=== PATIENT | female | born 1990 | race Caucasian/White ===

== ENCOUNTER 2019-01-09 19:42 | Emergency (ER) | payer BC ==
--- NOTE | 2019-01-09 20:33 | ED ---
General Adult HPI - General Chief complaint: Skin/Abscess/Foreign Body Stated complaint: infection at tube site Time Seen by Provider: 01/09/19 20:24 Source: patient Mode of arrival: ambulatory Limitations: no limitations - History of Present Illness Initial comments: Patient is a 28-year-old female presenting to the emergency department with a chief complaint of drainage after DONALD drain removal. Patient reports an appendectomy in april followed by multiple Infections. Patient reports in November she had a DOANLD drain placed for abscess drainage. Patient reports she has been on IV antibiotics and recently finished oral antibiotics. Patient reports 10 days ago she had the DONALD tube removed without any complications and the site was healing well. Patient reports she woke up this morning and noticed swelling and surrounding erythema along with yellow/white discharge. Patient reports chills but no fevers. Patient reports pain is a 5 and throbbing and it appears to be exacerbated with ambulation. - Related Data Home Medications Medication Instructions Recorded Confirmed Acetaminophen Tab [Tylenol Tab] 650 mg PO Q6H PRN 01/09/19 01/09/19 Budesonide [Budesonide EC] 9 mg PO DAILY 01/09/19 01/09/19 Cholecalciferol (Vitamin D3) 2,000 unit PO DAILY 01/09/19 01/09/19 [Vitamin D3] Ferrous Sulfate [Iron (65 MG 325 mg PO MOWEFR 01/09/19 01/09/19 Elemental)] Multivitamins, Thera [Multivitamin 1 tab PO DAILY 01/09/19 01/09/19 (formulary)] Prochlorperazine [Compazine] 5 mg PO Q6H PRN 01/09/19 01/09/19 Allergies Allergy/AdvReac Type Severity Reaction Status Date / Time cephalexin [From Keflex] Allergy Rash/Hives Verified 01/09/19 23:09 Review of Systems ROS Statement: Those systems with pertinent positive or pertinent negative responses have been documented in the HPI. ROS Other: All systems not noted in ROS Statement are negative. Past Medical History Past Medical History: No Reported History History of Any Multi-Drug Resistant Organisms: None Reported Past Surgical History: Adenoidectomy Past Psychological History: No Psychological Hx Reported Smoking Status: Never smoker Past Alcohol Use History: Occasional Past Drug Use History: None Reported General Exam Limitations: no limitations General appearance: alert, in no apparent distress Head exam: Present: atraumatic, normocephalic, normal inspection Eye exam: Present: normal appearance Pupils: Present: normal accommodation ENT exam: Present: normal exam, normal oropharynx, mucous membranes moist, TM's normal bilaterally, normal external ear exam Neck exam: Present: normal inspection, full ROM Respiratory exam: Present: normal lung sounds bilaterally Cardiovascular Exam: Present: normal rhythm, tachycardia, normal heart sounds GI/Abdominal exam: Present: soft, tenderness (Right lower quadrant tenderness at the site of J-P tube placement), normal bowel sounds, other (Draining open wound where the DONALD tube was removed from. Yellow/white drainage. Slight surrounding erythema and mild swelling. 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 Absent: distended, guarding, rebound, rigid, diminished bowel sounds, hyperactive bowel sounds, bruit, pulsatile mass, hernia Extremities exam: Present: normal inspection, full ROM Back exam: Present: normal inspection, full ROM. Absent: tenderness Neurological exam: Present: alert, oriented X3 Psychiatric exam: Present: normal affect, normal mood Skin exam: Present: warm, dry, intact, normal color Course Vital Signs 01/09/19 19:50 Temperature 97.7 F Pulse Rate 105 H Respiratory 20 Rate Blood Pressure 119/82 O2 Sat by Pulse 100 Oximetry Medical Decision Making - Medical Decision Making Patient is a 28-year-old female presenting to the emergency room with a chief complaint of a drainage from drain site. On physical examination there appears to be discharge that is yellow/white in color on the site of the DONALD drain. There is some swelling in the region with minimal erythema. Tenderness is tender with palpation. No abdominal guarding. CBC is indicative of mild leukocytosis and mild anemia. Blood cultures and lactic pending. Patient is declining analgesia. CT obtained is indicative of the large iliopsoas abscess along with an abscess in the pelvic region as well. Patient given fluids, vancomycin and Zosyn. Patient will be transferred to [facility] where the patient had the DONALD drain placed initially. Vitals are stable except for mild tachycardia. I spoke with Dr. escalona from the [facility] who will accept the patient. Patient will be transferred via ambulance. Case discussed with Dr. Funez. - Lab Data Result diagrams: 01/09/19 21:00 01/09/19 21:00 Lab Results 01/09/19 01/09/19 Range/Units 21:00 21:00 WBC 11.1 H (3.8-10.6) k/uL RBC 4.51 (3.80-5.40) m/uL Hgb 11.0 L (11.4-16.0) gm/dL Hct 34.4 (34.0-46.0) % MCV 76.3 L (80.0-100.0) fL MCH 24.4 L (25.0-35.0) pg MCHC 32.0 (31.0-37.0) g/dL RDW 18.2 H (11.5-15.5) % Plt Count 521 H (150-450) k/uL Anisocytosis Slight Microcytosis Moderate Sodium 136 L (137-145) mmol/L Potassium 4.4 (3.5-5.1) mmol/L Chloride 98 (98-107) mmol/L Carbon Dioxide 26 (22-30) mmol/L Anion Gap 12 mmol/L BUN 12 (7-17) mg/dL Creatinine 0.64 (0.52-1.04) mg/dL Est GFR (CKD-EPI)AfAm >90 (>60 ml/min/1.73 sqM) Est GFR (CKD-EPI)NonAf >90 (>60 ml/min/1.73 sqM) Glucose 129 H (74-99) mg/dL Calcium 9.2 (8.4-10.2) mg/dL Total Bilirubin 0.3 (0.2-1.3) mg/dL AST 21 (14-36) U/L ALT 16 (9-52) U/L Alkaline Phosphatase 120 (38-126) U/L Total Protein 7.1 (6.3-8.2) g/dL Albumin 3.4 L (3.5-5.0) g/dL Disposition Clinical Impression: Iliopsoas abscess on right Disposition: OTHER INSTITUTION NOT DEFINED Condition: Stable Instructions (If sedation given, give patient instructions): Abscess (ED) Additional Instructions: Patient will be transferred. Is patient prescribed a controlled substance at d/c from ED?: No Referrals: None,Stated [Primary Care Provider] - 1-2 days Time of Disposition: 00:39 - Out of Hospital Transfer - Req. Specs Out of Hospital Transfer - Requested Specifics: Other Emergency Center ([facility])
[2019-01-09 21:23] LABS: Anisocytosis Slight; HCT 34.4 % (34.0-46.0); MCH 24.4 pg (25.0-35.0); MCV 76.3 fL (80.0-100.0); Mean Platelet Volume 6.4; Microcytosis Moderate; Platelet Count 521 k/uL (150-450); RBC 4.51 m/uL (3.80-5.40); RDW 18.2 % (11.5-15.5); WBC 11.1 k/uL (3.8-10.6)
[2019-01-09 21:29] LABS: ALT 16 U/L (9-52); AST 21 U/L (14-36); African American GFR (CKD) >90 (>60 ml/min/1.73 sqM); Albumin 3.4 g/dL (3.5-5.0); Alkaline Phosphatase 120 U/L (38-126); Anion Gap 12 mmol/L; Blood Urea Nitrogen 12 mg/dL (7-17); Calcium 9.2 mg/dL (8.4-10.2); Carbon Dioxide 26 mmol/L (22-30); Chloride 98 mmol/L (98-107); Glucose 129 mg/dL (74-99); Non-African American GFR(CKD) >90 (>60 ml/min/1.73 sqM); Potassium 4.4 mmol/L (3.5-5.1); Sodium 136 mmol/L (137-145); Total Bilirubin 0.3 mg/dL (0.2-1.3); Total Protein 7.1 g/dL (6.3-8.2)
--- NOTE | 2019-01-09 23:20 | CT ---
EXAMINATION TYPE: CT abdomen pelvis w con DATE OF EXAM: 01/09/2019 COMPARISON: None HISTORY: RLQ abcess CT DLP: 705.5 mGycm Automated exposure control for dose reduction was used. TECHNIQUE: Helical acquisition of images was performed from the lung bases through the pelvis. CONTRAST: Performed without Oral Contrast and with IV Contrast, patient injected with 100 mL of Isovue 300. FINDINGS: Lung bases are clear. There is no pleural effusion. Heart size is normal. There is no pericardial eff usion. Liver spleen gallbladder pancreas appear normal. Bile ducts are not dilated. There is no adrenal mass. Kidneys show satisfactory contrast opacification. There is mild right-sided hydronephrosis. The right ureter is mildly ectatic. Bladder distends smoothly. There is no inguinal hernia. There is some free fluid in the pelvis. There is fat stranding and wall thickening involving loops of bowel in the right lower quadrant. The delay ed images show normal renal contrast excretion. I see no bony destructive process. Lumbar spine is in tact. Bony pelvis is intact. There is low attenuation and fluid along the iliopsoas muscle there is complex and septated. On the a xial images this measures 7 x 3 cm. There is some linear increased density extending to the skin surf annita in the right lower quadrant anteriorly consistent with surgical site. This should be correlated w ith the surgical history. Appendix is not seen. A thickened appendix is certainly possible in this ex tensive inflammatory changes in the right lower quadrant. IMPRESSION: THERE IS LARGE RIGHT-SIDED ILIOPSOAS ABSCESS WITH A FEW AIR BUBBLES AND COMPLEX SEPTATED FLUID. THERE IS FAT STRANDING IN THE ADJACENT BOWEL. THERE IS SOME FREE FLUID IN THE PELVIS. THIS IS CONSISTENT W ITH PELVIC ABSCESS. THERE IS MILD RIGHT-SIDED HYDRONEPHROSIS PROBABLY SECONDARY TO INFLAMMATORY MCNAIR ES ADJACENT TO THE RIGHT URETER. NO URETERAL STONE SEEN. There is wall thickening of distal loops of ileum and probably also the cecum consistent with inflammatory process. Is not clear if the appendix is present or not.
[2019-01-10] MEDS ORDERED: VANCOMYCIN 1,000 MG in SODIUM CHLORIDE 0.9% 250 ML IVPB STA (00:21)
[2019-01-10] MEDS ORDERED: PIPERACILLIN-TAZOBACTAM 3.375 GM in SODIUM CHLORIDE 0.9% 100 ML IVPB STA (00:22)
[2019-01-10 02:33] VITALS: BP 129/74; PULSE 100; RESP 18; TEMP 98.6
== END 2019-01-10 01:24 | disposition other institution (70) ==
LOC: EC 19:42
DX: K68.12 Psoas muscle abscess (principal); D72.829 Elevated white blood cell count, unspecified; D64.9 Anemia, unspecified; R00.0 Tachycardia, unspecified; Z88.1 Allergy status to other antibiotic agents
CPT/HCPCS: 36415 ×2; 80053; 83605; 85027; 87040; 87070; 87205; 87077; 87186; 74177; 99285; 96365; J2543; J3370; Q9967

== ENCOUNTER 2019-02-13 19:47 | Emergency (ER) | payer BC ==
[2019-02-13 20:04] VITALS: RESP 18; TEMP 97.8
[2019-02-13] MEDS ORDERED: SODIUM CHLORIDE 0.9% 1,000 ML IV STA (21:05)
[2019-02-13] MEDS ORDERED: MORPHINE SULFATE 4 MG/ML SYRINGE IV STA (21:05)
--- NOTE | 2019-02-13 21:12 | ED ---
Abdominal Pain HPI - General Chief Complaint: Abdominal Pain Stated Complaint: Abd Pain Time Seen by Provider: 02/13/19 20:43 Source: patient, RN notes reviewed, old records reviewed Mode of arrival: ambulatory Limitations: no limitations - History of Present Illness Initial Comments: this is a 28-year-old female here for evaluation rediagnosed recent diagnosis of Crohn's with abscess abdominal abscess and drain placed. Patient is having adequate drainage with no severe severe pain. All treatment is been done at the [facility] at this point. Otherwise patient has no significant fevers. No change in bowel habits no nausea vomiting. MD Complaint: abdominal pain, other (patient had recentsaid abdominal surgery, drain placed for abscess drainage) -: days(s) Location: suprapubic Radiation: suprapubic, bilateral flank Migration to: suprapubic, bilateral flank Severity: severe Severity scale (1-10): 8 Quality: stabbing, aching Consistency: constant Improves With: nothing Worsens With: nothing Associated Symptoms: nausea - Related Data Home Medications Medication Instructions Recorded Confirmed Cholecalciferol (Vitamin D3) 2,000 unit PO DAILY 01/09/19 02/13/19 [Vitamin D3] Ferrous Sulfate [Iron (65 MG 325 mg PO MOWEFR 01/09/19 02/13/19 Elemental)] Multivitamins, Thera [Multivitamin 1 tab PO DAILY 01/09/19 02/13/19 (formulary)] Ertapenem [INVanz] 1 gm IVPB Q24H 02/13/19 02/13/19 Allergies Allergy/AdvReac Type Severity Reaction Status Date / Time cephalexin [From Keflex] Allergy Rash/Hives Verified 02/13/19 23:21 Review of Systems ROS Statement: Those systems with pertinent positive or pertinent negative responses have been documented in the HPI. ROS Other: All systems not noted in ROS Statement are negative. Past Medical History Past Medical History: No Reported History Additional Past Medical History / Comment(s): crohns, abscess to intestine History of Any Multi-Drug Resistant Organisms: C-DIFF Date of last positivie culture/infection: 2019 MDRO Source:: stool Past Surgical History: Adenoidectomy, Appendectomy Past Psychological History: No Psychological Hx Reported Smoking Status: Never smoker Past Alcohol Use History: None Reported Past Drug Use History: None Reported General Exam Limitations: no limitations General appearance: alert, in no apparent distress, anxious Head exam: Present: atraumatic, normocephalic, normal inspection Eye exam: Present: normal appearance, PERRL, EOMI. Absent: scleral icterus, conjunctival injection, periorbital swelling ENT exam: Present: normal exam, mucous membranes moist Neck exam: Present: normal inspection. Absent: tenderness, meningismus, lymphadenopathy Respiratory exam: Present: normal lung sounds bilaterally. Absent: respiratory distress, wheezes, rales, rhonchi, stridor Cardiovascular Exam: Present: normal rhythm, tachycardia, normal heart sounds. Absent: systolic murmur, diastolic murmur, rubs, gallop, clicks GI/Abdominal exam: Present: distended, tenderness, guarding, normal bowel sounds. Absent: rebound, rigid Extremities exam: Present: normal inspection, full ROM, normal capillary refill. Absent: tenderness, pedal edema, joint swelling, calf tenderness Back exam: Present: normal inspection Neurological exam: Present: alert, oriented X3, CN II-XII intact Psychiatric exam: Present: normal affect, normal mood Skin exam: Present: warm, dry, intact, normal color. Absent: rash Course Vital Signs 02/13/19 02/13/19 20:02 23:36 Temperature 97.8 F Pulse Rate 112 H 97 Respiratory 18 18 Rate Blood Pressure 119/82 126/79 O2 Sat by Pulse 98 98 Oximetry - Reevaluation(s) Reevaluation #1: 02/13/19 23:31 medical records reviewed Reevaluation #2: 02/13/19 23:31 since pain is currently controlled Reevaluation #3: 02/13/19 23:32 spoke w family regarding treatment course and plan, questions are answered Reevaluation #4: 02/13/19 23:39 spoke patient states she has appointment with her surgeon 27 she would like to continue outpatient management at this time pain control she has antibiotics which she has she will call surgeon the morning without results - Consultations Consultation #1: spoke w Dr Stahl states the patient should be followed up under her primary care [facility] Medical Decision Making - Medical Decision Making 28 female to be discharged home does have recurrent new abscess in abdomen, patient is afebrile and well-appearing not peritoneal. Patient will be discharged home to follow up with surgeon this week - Lab Data Result diagrams: 02/13/19 20:58 02/13/19 20:58 Lab Results 02/13/19 02/13/19 02/13/19 Range/Units 20:58 20:58 20:58 WBC 10.1 (3.8-10.6) k/uL RBC 4.22 (3.80-5.40) m/uL Hgb 10.9 L (11.4-16.0) gm/dL Hct 33.1 L (34.0-46.0) % MCV 78.4 L (80.0-100.0) fL MCH 25.7 (25.0-35.0) pg MCHC 32.8 (31.0-37.0) g/dL RDW 15.7 H (11.5-15.5) % Plt Count 478 H (150-450) k/uL Neutrophils % 76 % Lymphocytes % 13 % Monocytes % 6 % Eosinophils % 3 % Basophils % 1 % Neutrophils # 7.7 (1.3-7.7) k/uL Lymphocytes # 1.4 (1.0-4.8) k/uL Monocytes # 0.6 (0-1.0) k/uL Eosinophils # 0.3 (0-0.7) k/uL Basophils # 0.1 (0-0.2) k/uL Microcytosis Slight Sodium 135 L (137-145) mmol/L Potassium 4.1 (3.5-5.1) mmol/L Chloride 100 (98-107) mmol/L Carbon Dioxide 26 (22-30) mmol/L Anion Gap 9 mmol/L BUN 12 (7-17) mg/dL Creatinine 0.71 (0.52-1.04) mg/dL Est GFR (CKD-EPI)AfAm >90 (>60 ml/min/1.73 sqM) Est GFR (CKD-EPI)NonAf >90 (>60 ml/min/1.73 sqM) Glucose 93 (74-99) mg/dL Plasma Lactic Acid Moris 0.6 L (0.7-2.0) mmol/L Calcium 9.3 (8.4-10.2) mg/dL Total Bilirubin 0.6 (0.2-1.3) mg/dL AST 19 (14-36) U/L ALT 10 (4-34) U/L Alkaline Phosphatase 109 (38-126) U/L Creatine Kinase <20 L (30-135) U/L Total Protein 6.7 (6.3-8.2) g/dL Albumin 3.4 L (3.5-5.0) g/dL Amylase <30 L (30-110) U/L Lipase 32 (23-300) U/L Urine Color Urine Appearance (Clear) Urine pH (5.0-8.0) Ur Specific [place] (1.001-1.035) Urine Protein (Negative) Urine Glucose (UA) (Negative) Urine Ketones (Negative) Urine Blood (Negative) Urine Nitrite (Negative) Urine Bilirubin (Negative) Urine Urobilinogen (<2.0) mg/dL Ur Leukocyte Esterase (Negative) Urine RBC (0-5) /hpf Urine WBC (0-5) /hpf Urine WBC Clumps (None) /hpf Ur Squamous Epith Cells (0-4) /hpf Calcium Oxalate Crystal (None) /hpf Urine Mucus (None) /hpf Urine HCG, Qual (Not Detectd) 02/13/19 02/13/19 Range/Units 21:15 21:15 WBC (3.8-10.6) k/uL RBC (3.80-5.40) m/uL Hgb (11.4-16.0) gm/dL Hct (34.0-46.0) % MCV (80.0-100.0) fL MCH (25.0-35.0) pg MCHC (31.0-37.0) g/dL RDW (11.5-15.5) % Plt Count (150-450) k/uL Neutrophils % % Lymphocytes % % Monocytes % % Eosinophils % % Basophils % % Neutrophils # (1.3-7.7) k/uL Lymphocytes # (1.0-4.8) k/uL Monocytes # (0-1.0) k/uL Eosinophils # (0-0.7) k/uL Basophils # (0-0.2) k/uL Microcytosis Sodium (137-145) mmol/L Potassium (3.5-5.1) mmol/L Chloride (98-107) mmol/L Carbon Dioxide (22-30) mmol/L Anion Gap mmol/L BUN (7-17) mg/dL Creatinine (0.52-1.04) mg/dL Est GFR (CKD-EPI)AfAm (>60 ml/min/1.73 sqM) Est GFR (CKD-EPI)NonAf (>60 ml/min/1.73 sqM) Glucose (74-99) mg/dL Plasma Lactic Acid Moris (0.7-2.0) mmol/L Calcium (8.4-10.2) mg/dL Total Bilirubin (0.2-1.3) mg/dL AST (14-36) U/L ALT (4-34) U/L Alkaline Phosphatase (38-126) U/L Creatine Kinase (30-135) U/L Total Protein (6.3-8.2) g/dL Albumin (3.5-5.0) g/dL Amylase (30-110) U/L Lipase (23-300) U/L Urine Color Yellow Urine Appearance Turbid H (Clear) Urine pH 5.5 (5.0-8.0) Ur Specific [place] 1.021 (1.001-1.035) Urine Protein 2+ H (Negative) Urine Glucose (UA) Negative (Negative) Urine Ketones Negative (Negative) Urine Blood Large H (Negative) Urine Nitrite Negative (Negative) Urine Bilirubin Negative (Negative) Urine Urobilinogen 2.0 (<2.0) mg/dL Ur Leukocyte Esterase Large H (Negative) Urine RBC >182 H (0-5) /hpf Urine WBC >182 H (0-5) /hpf Urine WBC Clumps Many H (None) /hpf Ur Squamous Epith Cells 5 H (0-4) /hpf Calcium Oxalate Crystal Many H (None) /hpf Urine Mucus Many H (None) /hpf Urine HCG, Qual Not Detected (Not Detectd) - Radiology Data Radiology results: report reviewed (CT abdomen and pelvis is positive for new abscess and improvement of old abscess), image reviewed Disposition Clinical Impression: Abdominal abscess, Abdominal pain Disposition: HOME SELF-CARE Condition: Fair Instructions (If sedation given, give patient instructions): Abscess (ED) Is patient prescribed a controlled substance at d/c from ED?: No Referrals: None,Stated [Primary Care Provider] - 1-2 days
[2019-02-13 21:27] LABS: Basophils # (A) 0.1 k/uL (0-0.2); Basophils % (A) 1 %; Eosinophils # (A) 0.3 k/uL (0-0.7); Eosinophils % (A) 3 %; HCT 33.1 % (34.0-46.0); HGB 10.9 gm/dL (11.4-16.0); Lymphocytes # (A) 1.4 k/uL (1.0-4.8); Lymphocytes % (A) 13 %; MCH 25.7 pg (25.0-35.0); MCHC 32.8 g/dL (31.0-37.0); MCV 78.4 fL (80.0-100.0); Mean Platelet Volume 7.3; Microcytosis Slight; Monocytes # (A) 0.6 k/uL (0-1.0); Monocytes % (A) 6 %; Neutrophils # (A) 7.7 k/uL (1.3-7.7); Neutrophils % (A) 76 %; Platelet Count 478 k/uL (150-450); RBC 4.22 m/uL (3.80-5.40); RDW 15.7 % (11.5-15.5); WBC 10.1 k/uL (3.8-10.6)
[2019-02-13 21:39] LABS: Appearance,Urine Turbid (Clear); Bilirubin,Urine Negative (Negative); Blood,Urine Large (Negative); Calcium Oxalate Crystals,Urine Many /hpf; Color,Urine Yellow; Glucose,Urine (UA) Negative (Negative); Ketones,Urine Negative (Negative); Leukocyte Esterase,Urine Large (Negative); Mucus,Urine Many /hpf; Nitrite,Urine Negative (Negative); PH, Urine 5.5 (5.0-8.0); Protein,Urine 2+ (Negative); RBC,Urine >182 /hpf (0-5); Specific Gravity,Urine 1.021 (1.001-1.035); Squamous Epithelial Cell,Urine 5 /hpf (0-4); WBC,Urine >182 /hpf (0-5)
[2019-02-13 21:39] LABS: ALT 10 U/L (4-34); AST 19 U/L (14-36); African American GFR (CKD) >90 (>60 ml/min/1.73 sqM); Albumin 3.4 g/dL (3.5-5.0); Alkaline Phosphatase 109 U/L (38-126); Amylase <30 U/L (30-110); Anion Gap 9 mmol/L; Blood Urea Nitrogen 12 mg/dL (7-17); Calcium 9.3 mg/dL (8.4-10.2); Carbon Dioxide 26 mmol/L (22-30); Chloride 100 mmol/L (98-107); Creatine Kinase <20 U/L (30-135); Glucose 93 mg/dL (74-99); Non-African American GFR(CKD) >90 (>60 ml/min/1.73 sqM); Potassium 4.1 mmol/L (3.5-5.1); Sodium 135 mmol/L (137-145); Total Bilirubin 0.6 mg/dL (0.2-1.3); Total Protein 6.7 g/dL (6.3-8.2)
--- NOTE | 2019-02-13 21:54 | XR ---
EXAMINATION TYPE: XR KUB DATE OF EXAM: 02/13/2019 COMPARISON: NONE HISTORY: Left side pain TECHNIQUE: 2 views upright FINDINGS: There is no sign of intestinal obstruction or pneumoperitoneum. Fecal pattern is normal. Th ere is a drainage catheter over the right side of the pelvis. There are no pathologic calcifications over the kidneys. Lung bases are clear. IMPRESSION: Nonacute abdomen.
--- NOTE | 2019-02-13 22:17 | CT ---
EXAMINATION TYPE: CT abdomen pelvis wo con DATE OF EXAM: 02/13/2019 COMPARISON: 01/09/2019 HISTORY: abdominal pain history abcess surgery last april CT DLP: 456 mGycm Automated exposure control for dose reduction was used. Multiple axial sections were obtained from the diaphragm to the floor the pelvis with no contrast. Lung bases are clear. There is no pleural effusion. Heart appears normal. Liver spleen pancreas gallbladder appear normal. Stomach appears normal. The bile ducts are not dilat ed. There is no adrenal mass. Kidneys have normal size. There is mild right-sided hydronephrosis. There i s mild ectasia of the right ureter. There is some free fluid in the pelvis. There is a pigtail draina ge catheter in the pelvis on the right lateral sidewall. I see no fluid around the catheter. There is some thickening however of the right psoas muscle on the pelvic sidewall. There is a 3.2 cm complex area in the subcutaneous fat over the left mid abdomen. There is fluid level. Is not clear if this is a herniated loop of bowel or subcutaneous abscess. This appears new compared to old exam. There is f at stranding around the mass. There is complex density in the peritoneal cavity anteriorly in the mid pelvis this contains air bubble. This area measures approximate 4.5 x 2.5 cm. I see no evidence of pneumoperitoneum. Lumbar spine is intact. Bony pelvis is intact. IMPRESSION: There is significant clearing of the right psoas abscess compared to last exam. Pigtail catheter is i n good position. There is minimal thickening along the right psoas muscle. There is a new complex mass anterior and posterior to the abdominal wall in the lower abdomen that is probably an abscess. There is some free fluid in the pelvis that is increased slightly compared to l ast exam.
[2019-02-13] MEDS ORDERED: ERTAPENEM 1 GM in SODIUM CHLORIDE 0.9% 50 ML IVPB ONE (23:30)
[2019-02-13] MEDS ORDERED: SODIUM CHLORIDE 0.9% 500 ML 500 ML IV SCH (23:30)
[2019-02-13] MEDS ORDERED: SODIUM CHLORIDE 0.9% 1,000 ML IV SCH (23:30)
[2019-02-13 23:37] VITALS: BP 126/79; PULSE 97
[2019-02-14] MEDS ORDERED: ERTAPENEM 1 GM in SODIUM CHLORIDE 0.9% 50 ML IVPB SCH (09:00)
== END 2019-02-13 23:54 | disposition home or self-care (01) ==
LOC: EC 19:47
DX: L02.211 Cutaneous abscess of abdominal wall (principal); Z87.19 Personal history of other diseases of the digestive system; Z90.49 Acquired absence of other specified parts of digestive tract; Z88.1 Allergy status to other antibiotic agents
CPT/HCPCS: 99285; 96374; 96361; 36415; 93005; 80053; 82150; 82550; 83605; 83690; 85025; 81001; 81025; 87086; 74018; 74176; J2270

== ENCOUNTER 2019-02-28 19:32 | Emergency (ER) | payer BC ==
[2019-02-28 22:04] VITALS: RESP 18
[2019-02-28] MEDS ORDERED: ONDANSETRON 4 MG/2 ML VIAL IVP STA (22:11)
[2019-02-28] MEDS ORDERED: HYDROmorphone 0.5 MG/0.5 ML SYRINGE IVP STA (22:11)
[2019-02-28] MEDS ORDERED: SODIUM CHLORIDE 0.9% 1,000 ML IV STA (22:11)
[2019-02-28] MEDS ORDERED: SODIUM CHLORIDE 0.9% 1,000 ML IV ONE (22:41)
[2019-02-28 22:51] LABS: Basophils # (A) 0.1 k/uL (0-0.2); Basophils % (A) 1 %; Eosinophils # (A) 0.4 k/uL (0-0.7); Eosinophils % (A) 2 %; HCT 37.7 % (34.0-46.0); HGB 12.1 gm/dL (11.4-16.0); Lymphocytes % (A) 6 %; MCH 25.6 pg (25.0-35.0); MCV 80.1 fL (80.0-100.0); Mean Platelet Volume 7.1; Monocytes # (A) 0.4 k/uL (0-1.0); Monocytes % (A) 3 %; Neutrophils # (A) 15.2 k/uL (1.3-7.7); Neutrophils % (A) 88 %; Platelet Count 793 k/uL (150-450); RDW 15.4 % (11.5-15.5); WBC 17.3 k/uL (3.8-10.6)
[2019-02-28 23:07] LABS: ALT 30 U/L (4-34); AST 43 U/L (14-36); African American GFR (CKD) >90 (>60 ml/min/1.73 sqM); Albumin 3.9 g/dL (3.5-5.0); Alkaline Phosphatase 133 U/L (38-126); Amylase 34 U/L (30-110); Anion Gap 14 mmol/L; Blood Urea Nitrogen 12 mg/dL (7-17); Calcium 9.8 mg/dL (8.4-10.2); Carbon Dioxide 26 mmol/L (22-30); Chloride 97 mmol/L (98-107); Glucose 105 mg/dL (74-99); Non-African American GFR(CKD) 87 (>60 ml/min/1.73 sqM); Potassium 4.4 mmol/L (3.5-5.1); Sodium 137 mmol/L (137-145); Total Bilirubin 0.5 mg/dL (0.2-1.3); Total Protein 7.6 g/dL (6.3-8.2)
[2019-03-01] MEDS ORDERED: LOPERAMIDE 2 MG CAP PO ONE
[2019-03-01] MEDS ORDERED: PIPERACILLIN-TAZOBACTAM 3.375 GM in SODIUM CHLORIDE 0.9% 100 ML IVPB STA (01:01)
[2019-03-01 01:16] LABS: Appearance,Urine Cloudy (Clear); Bacteria,Urine Rare /hpf; Bilirubin,Urine Negative (Negative); Blood,Urine Negative (Negative); Color,Urine Yellow; Glucose,Urine (UA) Negative (Negative); Hyaline Casts,Urine 89 /lpf (0-2); Ketones,Urine 1+ (Negative); Leukocyte Esterase,Urine Negative (Negative); Mucus,Urine Rare /hpf; Nitrite,Urine Negative (Negative); Protein,Urine 1+ (Negative); RBC,Urine 1 /hpf (0-5); Specific Gravity,Urine 1.039 (1.001-1.035); Squamous Epithelial Cell,Urine 3 /hpf (0-4); Urobilinogen,Urine <2.0 mg/dL (<2.0); WBC,Urine 11 /hpf (0-5)
--- NOTE | 2019-03-01 01:48 | ED ---
General Adult HPI - General Chief complaint: Abdominal Pain Stated complaint: Nausea, abd pain, post surgery, ileostomy Time Seen by Provider: 02/28/19 21:53 Source: patient Mode of arrival: ambulatory Limitations: no limitations - History of Present Illness Initial comments: 28-year-old female patient with past medical history for Crohn's disease presen ts to the emergency department today for evaluation of vomiting, abdominal pain, and high output from her ileostomy. Patient had placement of the ileostomy on Wednesday at [facility], was released from the hospital today. States that symptoms have progressively worsening since arriving home. States she's had 1250 mL of output since 5 PM. Denies any bloody stool. States that she did take Tylenol but denies any other medication's. She denies any fever or chills. Denies any urinary symptoms. Patient surgeon is Dr. Catarina Morin at [facility]. Patient denies any recent rash, shortness breath, chest pain, back pain, numbness, tingling, dizziness, weakness, hematuria, dysuria, urinary urgency, urinary frequency, headache, visual changes, or any other complaints. - Related Data Home Medications Medication Instructions Recorded Confirmed Cholecalciferol (Vitamin D3) 2,000 unit PO DAILY 01/09/19 02/13/19 [Vitamin D3] Ferrous Sulfate [Iron (65 MG 325 mg PO MOWEFR 01/09/19 02/13/19 Elemental)] Multivitamins, Thera [Multivitamin 1 tab PO DAILY 01/09/19 02/13/19 (formulary)] Ertapenem [INVanz] 1 gm IVPB Q24H 02/13/19 02/13/19 Previous Rx's Medication Instructions Recorded Loperamide [Imodium] 2 mg PO QID PRN #20 capsule 03/01/19 Allergies Allergy/AdvReac Type Severity Reaction Status Date / Time cephalexin [From Keflex] Allergy Rash/Hives Verified 02/13/19 23:21 Review of Systems ROS Statement: Those systems with pertinent positive or pertinent negative responses have been documented in the HPI. ROS Other: All systems not noted in ROS Statement are negative. Past Medical History Past Medical History: No Reported History Additional Past Medical History / Comment(s): crohns, abscess to intestine History of Any Multi-Drug Resistant Organisms: C-DIFF Date of last positivie culture/infection: 2019 MDRO Source:: stool Past Surgical History: Adenoidectomy, Appendectomy Additional Past Surgical History / Comment(s): ileostomy Past Psychological History: No Psychological Hx Reported Smoking Status: Never smoker Past Alcohol Use History: None Reported Past Drug Use History: None Reported General Exam Limitations: no limitations General appearance: alert, in no apparent distress, other (This well-developed, well-nourished adult female patient in no acute distress. Vital signs upon presentation are temperature 97.9F pulse 123, respirations 22, blood pressure 147/77, pulse ox 97% on room air.) ENT exam: Present: normal exam, normal oropharynx, mucous membranes moist Respiratory exam: Present: normal lung sounds bilaterally. Absent: respiratory distress, wheezes, rales, rhonchi, stridor Cardiovascular Exam: Present: regular rate, normal rhythm, normal heart sounds. Absent: systolic murmur, diastolic murmur, rubs, gallop, clicks GI/Abdominal exam: Present: soft, normal bowel sounds, other (Right upper quadrant ileostomy, 3 incisions to upper abdomen. No surrounding erythema. No drainage.). Absent: distended, tenderness, guarding, rebound, rigid Neurological exam: Present: alert, oriented X3, CN II-XII intact Psychiatric exam: Present: normal affect, normal mood Skin exam: Present: warm, dry, intact, normal color. Absent: rash Course Vital Signs 02/28/19 02/28/19 03/01/19 19:44 22:02 02:22 Temperature 97.9 F 97.3 F L 96.8 F L Pulse Rate 123 H 103 H 90 Respiratory 22 18 18 Rate Blood Pressure 147/77 120/81 112/68 O2 Sat by Pulse 97 99 100 Oximetry Medical Decision Making - Medical Decision Making 28-year-old female patient presents to the emergency department today for evaluation of abdominal pain, vomiting, and high output from her ileostomy. Patient reports 1250 mL of output since 5 PM. Labs reviewed did reveal elevated white blood cell count at 17,000. I did discuss the case with the patient's surgeon Dr. Catarina Morin she gives instructions to provide symptom management. Administer IV fluids. And to administer Imodium to decrease output to the ileostomy. She was expecting patient's white blood cell count to be elevated. She will have her nurse call the patient in the morning for follow-up. Upon reevaluation patient does report improvement of symptoms. Patient was due for a dose of zosyn per her outpatient orders, we did give her dose. She'll be discharged with a prescription for Imodium for control of ileostomy output. Return parameters discussed in detail. She verbalizes understanding and agrees with this plan. - Lab Data Result diagrams: 02/28/19 22:40 02/28/19 22:40 Lab Results 02/28/19 02/28/19 03/01/19 Range/Units 22:40 22:40 00:50 WBC 17.3 H (3.8-10.6) k/uL RBC 4.70 (3.80-5.40) m/uL Hgb 12.1 (11.4-16.0) gm/dL Hct 37.7 (34.0-46.0) % MCV 80.1 (80.0-100.0) fL MCH 25.6 (25.0-35.0) pg MCHC 32.0 (31.0-37.0) g/dL RDW 15.4 (11.5-15.5) % Plt Count 793 H (150-450) k/uL Neutrophils % 88 % Lymphocytes % 6 % Monocytes % 3 % Eosinophils % 2 % Basophils % 1 % Neutrophils # 15.2 H (1.3-7.7) k/uL Lymphocytes # 1.0 (1.0-4.8) k/uL Monocytes # 0.4 (0-1.0) k/uL Eosinophils # 0.4 (0-0.7) k/uL Basophils # 0.1 (0-0.2) k/uL Sodium 137 (137-145) mmol/L Potassium 4.4 (3.5-5.1) mmol/L Chloride 97 L (98-107) mmol/L Carbon Dioxide 26 (22-30) mmol/L Anion Gap 14 mmol/L BUN 12 (7-17) mg/dL Creatinine 0.91 (0.52-1.04) mg/dL Est GFR (CKD-EPI)AfAm >90 (>60 ml/min/1.73 sqM) Est GFR (CKD-EPI)NonAf 87 (>60 ml/min/1.73 sqM) Glucose 105 H (74-99) mg/dL Calcium 9.8 (8.4-10.2) mg/dL Total Bilirubin 0.5 (0.2-1.3) mg/dL AST 43 H (14-36) U/L ALT 30 (4-34) U/L Alkaline Phosphatase 133 H (38-126) U/L Total Protein 7.6 (6.3-8.2) g/dL Albumin 3.9 (3.5-5.0) g/dL Amylase 34 (30-110) U/L Lipase 24 (23-300) U/L Urine Color Yellow Urine Appearance Cloudy H (Clear) Urine pH 5.0 (5.0-8.0) Ur Specific [place] 1.039 H (1.001-1.035) Urine Protein 1+ H (Negative) Urine Glucose (UA) Negative (Negative) Urine Ketones 1+ H (Negative) Urine Blood Negative (Negative) Urine Nitrite Negative (Negative) Urine Bilirubin Negative (Negative) Urine Urobilinogen <2.0 (<2.0) mg/dL Ur Leukocyte Esterase Negative (Negative) Urine RBC 1 (0-5) /hpf Urine WBC 11 H (0-5) /hpf Ur Squamous Epith Cells 3 (0-4) /hpf Urine Bacteria Rare H (None) /hpf Hyaline Casts 89 H (0-2) /lpf Urine Mucus Rare H (None) /hpf Disposition Clinical Impression: Vomiting, High output ileostomy Disposition: HOME SELF-CARE Condition: Good Instructions (If sedation given, give patient instructions): Acute Nausea and Vomiting (ED), Ileostomy Diet (ED) Additional Instructions: Take medications as directed. The nurse will call you from her surgeon's office in the morning. Return to the emergency department immediately for any new, worsening, or concerning symptoms. Prescriptions: Loperamide [Imodium] 2 mg PO QID PRN #20 capsule PRN Reason: high output from ileostomy Is patient prescribed a controlled substance at d/c from ED?: No Referrals: None,Stated [Primary Care Provider] - 1-2 days Time of Disposition: 01:48
[2019-03-01 02:23] VITALS: BP 112/68; PULSE 90; TEMP 96.8
== END 2019-03-01 02:22 | disposition home or self-care (01) ==
LOC: EC 19:32
DX: K94.03 Colostomy malfunction (principal); R11.10 Vomiting, unspecified; D72.829 Elevated white blood cell count, unspecified; R10.9 Unspecified abdominal pain; K50.90 Crohn's disease, unspecified, without complications; Z88.1 Allergy status to other antibiotic agents; Z90.49 Acquired absence of other specified parts of digestive tract
CPT/HCPCS: 36415; 80053; 82150; 83690; 85025; 81001; 87086; 99284; 96365; 96375 ×3; 96361 ×2; J2543; J2405; J1642; J1170

== ENCOUNTER 2019-10-26 20:37 | Emergency (ER) | payer BC ==
[2019-10-26 20:46] VITALS: RESP 18
[2019-10-26] MEDS ORDERED: SODIUM CHLORIDE 0.9% 500 ML 500 ML IV STA (20:48)
[2019-10-26] MEDS ORDERED: ONDANSETRON 4 MG/2 ML VIAL IVP STA (20:56)
[2019-10-26] MEDS ORDERED: HYDROmorphone 0.5 MG/0.5 ML SYRINGE IVP PRN (20:56)
[2019-10-26] MEDS ORDERED: SODIUM CHLORIDE 0.9% 1,000 ML IV SCH (21:00)
[2019-10-26 21:55] LABS: Basophils # (A) 0.1 k/uL (0-0.2); Basophils % (A) 0 %; Eosinophils # (A) 0.2 k/uL (0-0.7); Eosinophils % (A) 1 %; HCT 45.8 % (34.0-46.0); HGB 15.3 gm/dL (11.4-16.0); Lymphocytes # (A) 1.5 k/uL (1.0-4.8); Lymphocytes % (A) 10 %; MCHC 33.4 g/dL (31.0-37.0); MCV 83.7 fL (80.0-100.0); Mean Platelet Volume 7.5; Monocytes # (A) 0.8 k/uL (0-1.0); Monocytes % (A) 5 %; Neutrophils # (A) 12.1 k/uL (1.3-7.7); Neutrophils % (A) 81 %; Platelet Count 290 k/uL (150-450); RBC 5.48 m/uL (3.80-5.40); RDW 12.3 % (11.5-15.5); WBC 14.8 k/uL (3.8-10.6)
[2019-10-26 22:02] LABS: ALT 67 U/L (4-34); AST 45 U/L (14-36); African American GFR (CKD) >90 (>60 ml/min/1.73 sqM); Albumin 5.1 g/dL (3.5-5.0); Alkaline Phosphatase 95 U/L (38-126); Amylase 54 U/L (30-110); Anion Gap 9 mmol/L; Blood Urea Nitrogen 15 mg/dL (7-17); Calcium 10.2 mg/dL (8.4-10.2); Carbon Dioxide 24 mmol/L (22-30); Chloride 102 mmol/L (98-107); Glucose 109 mg/dL (74-99); Non-African American GFR(CKD) >90 (>60 ml/min/1.73 sqM); Potassium 4.3 mmol/L (3.5-5.1); Sodium 135 mmol/L (137-145); Total Bilirubin 2.3 mg/dL (0.2-1.3); Total Protein 8.4 g/dL (6.3-8.2)
[2019-10-26 22:29] LABS: Appearance,Urine Cloudy (Clear); Bacteria,Urine Rare /hpf; Bilirubin,Urine Negative (Negative); Blood,Urine Negative (Negative); Color,Urine Yellow; Glucose,Urine (UA) Negative (Negative); Ketones,Urine 1+ (Negative); Leukocyte Esterase,Urine Negative (Negative); Mucus,Urine Moderate /hpf; Nitrite,Urine Negative (Negative); PH, Urine 6.5 (5.0-8.0); Protein,Urine Trace (Negative); RBC,Urine <1 /hpf (0-5); Specific Gravity,Urine 1.024 (1.001-1.035); Squamous Epithelial Cell,Urine 13 /hpf (0-4); Urobilinogen,Urine <2.0 mg/dL (<2.0); WBC,Urine 3 /hpf (0-5)
--- NOTE | 2019-10-26 22:50 | ED ---
Abdominal Pain HPI - General Source: patient Mode of arrival: ambulatory Limitations: no limitations <Lissy Badillo - Last Filed: 10/31/19 10:04> <rTip Lu - Last Filed: 11/02/19 21:52> - General Chief Complaint: Abdominal Pain Stated Complaint: Poss Blocked Ostomy Time Seen by Provider: 10/26/19 20:48 - History of Present Illness Initial Comments: 29yo female with history of bowel resection secondary to intrabdominal abscess as a complication from crohns disease presenting today for cc of abdominal pain, nausea, decreased ostomy output. Patient states that she has had diffuse abdominal pain nausea decreased ostomy output for the past day. Patient denies any fever she denies any bloody output hematemesis. Patient denies any chest pain shortness of breath. Patient was concerned because there is decreased output that she passed what had a blockage of her ostomy. She states that the output that is currently is within her bag is more loose than usual. patiobien has no additional complaints. Pt gets infusions every 6-8 weeks which she believes is remicaide. Her surgeon is out of [facility]. (Lissy Badillo) - Related Data Home Medications Medication Instructions Recorded Confirmed Cholecalciferol (Vitamin D3) 2,000 unit PO DAILY 01/09/19 02/13/19 [Vitamin D3] Ferrous Sulfate [Iron (65 MG 325 mg PO MOWEFR 01/09/19 02/13/19 Elemental)] Multivitamins, Thera [Multivitamin 1 tab PO DAILY 01/09/19 02/13/19 (formulary)] Ertapenem [INVanz] 1 gm IVPB Q24H 02/13/19 02/13/19 Previous Rx's Medication Instructions Recorded Loperamide [Imodium] 2 mg PO QID PRN #20 capsule 03/01/19 Allergies Allergy/AdvReac Type Severity Reaction Status Date / Time cephalexin [From Keflex] Allergy Rash/Hives Verified 10/26/19 20:46 Review of Systems ROS Other: All systems not noted in ROS Statement are negative. <Lissy Badillo - Last Filed: 10/31/19 10:04> ROS Other: All systems not noted in ROS Statement are negative. <Trip Lu - Last Filed: 11/02/19 21:52> ROS Statement: Those systems with pertinent positive or pertinent negative responses have been documented in the HPI. Past Medical History Past Medical History: No Reported History Additional Past Medical History / Comment(s): crohns, abscess to intestine History of Any Multi-Drug Resistant Organisms: C-DIFF Date of last positivie culture/infection: 2019 MDRO Source:: stool Past Surgical History: Adenoidectomy, Appendectomy Additional Past Surgical History / Comment(s): ileostomy Past Psychological History: No Psychological Hx Reported Smoking Status: Never smoker Past Alcohol Use History: Rare Past Drug Use History: None Reported <Lissy Badillo - Last Filed: 10/31/19 10:04> General Exam Limitations: no limitations <Lissy Badillo - Last Filed: 10/31/19 10:04> - General Exam Comments Initial Comments: General: The patient is awake and alert, in no distress Eye: +3 mm pupils are equal, round and reactive to light, extra-ocular movements are intact. No nystagmus. There is normal conjunctiva bilaterally. No signs of icterus. Ears, nose, mouth and throat: There are moist mucous membranes and no oral lesions. Neck: The neck is supple, there is no tenderness or JVD. Cardiovascular: There is a regular rate and rhythm. No murmur, rub or gallop is appreciated. Respiratory: Lungs are clear to auscultation, respirations are non-labored, breath sounds are equal. No wheezes, stridor, rales, or rhonchi. Gastrointestinal: Soft, diffuse tender abdomen with some localization to the upper quadrants, abdomen without masses or organomegaly noted. There is no rebound or guarding present. Musculoskeletal: Normal ROM, no tenderness. Strength 5/5. Sensation intact. Radial pulses equal bilaterally 2+. Neurological: A&O x 3. CN II-XII intact grossly, There are no obvious motor or sensory deficits. Coordination appears grossly intact. Speech is normal. Skin: Skin is warm and dry and no rashes or lesions are noted. Psychiatric: Cooperative, appropriate mood & affect, normal judgment. (Lissy Badillo) Course <Lissy Badillo - Last Filed: 10/31/19 10:04> Vital Signs 10/26/19 10/26/19 10/26/19 20:44 23:00 23:55 Temperature 98.3 F 97.8 F Pulse Rate 93 75 Respiratory 18 18 Rate Blood Pressure 148/115 120/78 123/73 O2 Sat by Pulse 98 98 Oximetry 10/27/19 01:28 Temperature 97.5 F L Pulse Rate 84 Respiratory 18 Rate Blood Pressure 135/92 O2 Sat by Pulse 96 Oximetry - Reevaluation(s) Reevaluation #1: signed patient out to attending Dr. Modi- Patient aware of change in providers agreeable to current care plan. pain improved. 10/26/19 23:08 (Lissy Badillo) Medical Decision Making - Lab Data Result diagrams: 10/26/19 21:19 10/26/19 21:19 <Lissy Badillo - Last Filed: 10/31/19 10:04> - Lab Data Result diagrams: 10/26/19 21:19 10/26/19 21:19 <Trip Lu - Last Filed: 11/02/19 21:52> - Medical Decision Making Pt presenting for abdominal pain, decreased ostomy output, n/v. Patient labs revealed leukocytosis. Patient case was signed out to attending Dr. lu at shift change. After reviewing chart it appears patient had small bowel obstruction and was transferred to [facility] due to continuity of care as patient established surgeon is at that facility. Further MDM is to be provided by attending. (Lissy Badillo) I saw this patient in conjunction with the physician stylist assistant. I performed independent history and physical exam. Agree with case management. I discussed the study results with the patient and did reevaluate her abdomen. I discussed options including admitting the patient here to be seen by surgery or transferring the patient and the patient does request to go back to [facility] where she has had her previous surgery. I discussed the case with Dr. Tavarez who will accept the patient for transfer to the emergency department. (Trip Lu) - Lab Data Lab Results 10/26/19 10/26/19 10/26/19 Range/Units 21:19 21:19 21:19 WBC 14.8 H (3.8-10.6) k/uL RBC 5.48 H (3.80-5.40) m/uL Hgb 15.3 (11.4-16.0) gm/dL Hct 45.8 (34.0-46.0) % MCV 83.7 (80.0-100.0) fL MCH 28.0 (25.0-35.0) pg MCHC 33.4 (31.0-37.0) g/dL RDW 12.3 (11.5-15.5) % Plt Count 290 (150-450) k/uL Neutrophils % 81 % Lymphocytes % 10 % Monocytes % 5 % Eosinophils % 1 % Basophils % 0 % Neutrophils # 12.1 H (1.3-7.7) k/uL Lymphocytes # 1.5 (1.0-4.8) k/uL Monocytes # 0.8 (0-1.0) k/uL Eosinophils # 0.2 (0-0.7) k/uL Basophils # 0.1 (0-0.2) k/uL Sodium 135 L (137-145) mmol/L Potassium 4.3 (3.5-5.1) mmol/L Chloride 102 (98-107) mmol/L Carbon Dioxide 24 (22-30) mmol/L Anion Gap 9 mmol/L BUN 15 (7-17) mg/dL Creatinine 0.82 (0.52-1.04) mg/dL Est GFR (CKD-EPI)AfAm >90 (>60 ml/min/1.73 sqM) Est GFR (CKD-EPI)NonAf >90 (>60 ml/min/1.73 sqM) Glucose 109 H (74-99) mg/dL Calcium 10.2 (8.4-10.2) mg/dL Total Bilirubin 2.3 H (0.2-1.3) mg/dL AST 45 H (14-36) U/L ALT 67 H (4-34) U/L Alkaline Phosphatase 95 (38-126) U/L Total Protein 8.4 H (6.3-8.2) g/dL Albumin 5.1 H (3.5-5.0) g/dL Amylase 54 (30-110) U/L Lipase 54 (23-300) U/L Urine Color Yellow Urine Appearance Cloudy H (Clear) Urine pH 6.5 (5.0-8.0) Ur Specific [place] 1.024 (1.001-1.035) Urine Protein Trace H (Negative) Urine Glucose (UA) Negative (Negative) Urine Ketones 1+ H (Negative) Urine Blood Negative (Negative) Urine Nitrite Negative (Negative) Urine Bilirubin Negative (Negative) Urine Urobilinogen <2.0 (<2.0) mg/dL Ur Leukocyte Esterase Negative (Negative) Urine RBC <1 (0-5) /hpf Urine WBC 3 (0-5) /hpf Ur Squamous Epith Cells 13 H (0-4) /hpf Urine Bacteria Rare H (None) /hpf Urine Mucus Moderate H (None) /hpf Urine HCG, Qual (Not Detectd) 10/26/19 Range/Units 21:19 WBC (3.8-10.6) k/uL RBC (3.80-5.40) m/uL Hgb (11.4-16.0) gm/dL Hct (34.0-46.0) % MCV (80.0-100.0) fL MCH (25.0-35.0) pg MCHC (31.0-37.0) g/dL RDW (11.5-15.5) % Plt Count (150-450) k/uL Neutrophils % % Lymphocytes % % Monocytes % % Eosinophils % % Basophils % % Neutrophils # (1.3-7.7) k/uL Lymphocytes # (1.0-4.8) k/uL Monocytes # (0-1.0) k/uL Eosinophils # (0-0.7) k/uL Basophils # (0-0.2) k/uL Sodium (137-145) mmol/L Potassium (3.5-5.1) mmol/L Chloride (98-107) mmol/L Carbon Dioxide (22-30) mmol/L Anion Gap mmol/L BUN (7-17) mg/dL Creatinine (0.52-1.04) mg/dL Est GFR (CKD-EPI)AfAm (>60 ml/min/1.73 sqM) Est GFR (CKD-EPI)NonAf (>60 ml/min/1.73 sqM) Glucose (74-99) mg/dL Calcium (8.4-10.2) mg/dL Total Bilirubin (0.2-1.3) mg/dL AST (14-36) U/L ALT (4-34) U/L Alkaline Phosphatase (38-126) U/L Total Protein (6.3-8.2) g/dL Albumin (3.5-5.0) g/dL Amylase (30-110) U/L Lipase (23-300) U/L Urine Color Urine Appearance (Clear) Urine pH (5.0-8.0) Ur Specific [place] (1.001-1.035) Urine Protein (Negative) Urine Glucose (UA) (Negative) Urine Ketones (Negative) Urine Blood (Negative) Urine Nitrite (Negative) Urine Bilirubin (Negative) Urine Urobilinogen (<2.0) mg/dL Ur Leukocyte Esterase (Negative) Urine RBC (0-5) /hpf Urine WBC (0-5) /hpf Ur Squamous Epith Cells (0-4) /hpf Urine Bacteria (None) /hpf Urine Mucus (None) /hpf Urine HCG, Qual Not Detected (Not Detectd) Disposition Is patient prescribed a controlled substance at d/c from ED?: No Time of Disposition: 10:06 - Out of Hospital Transfer - Req. Specs Out of Hospital Transfer - Requested Specifics: Other Emergency Center ([facility]) <Lissy Badillo - Last Filed: 10/31/19 10:04> <Trip Lu - Last Filed: 11/02/19 21:52> Clinical Impression: Small bowel obstruction, Abdominal pain, Vomiting Disposition: OTHER INSTITUTION NOT DEFINED Condition: Stable Referrals: None,Stated [Primary Care Provider] - 1-2 days
--- NOTE | 2019-10-26 23:10 | CT ---
EXAMINATION TYPE: CT abdomen pelvis w con DATE OF EXAM: 10/26/2019 COMPARISON: 02/13/2019 HISTORY: Abdominal pain, vomiting, possible blocked ostomy. CT DLP: 1268.1 mGycm Automated exposure control for dose reduction was used. CONTRAST: Performed with IV Contrast, patient injected with 100 mL of Isovue 300. There is minimal subsegmental atelectasis at the lung bases. Heart size is normal. There is no perica rdial effusion. There is no pleural effusion. Gallbladder is dilated and measures up to 5.1 cm in diameter. The bile ducts are not dilated. Liver s hows no focal defect. Spleen is intact. There is no pancreatic mass. There is no adrenal mass. Kidneys show satisfactory contrast opacification. There is no hydronephrosi s. Ureters are not dilated. Delayed images show normal renal excretion. There is no retroperitoneal a denopathy. Large bowel is mostly empty. There is Loop ileostomy in the right lower quadrant. There are multiple dilated fluid-filled loops of small bowel. Appendix is not definitely seen. Small bowel is dilated up to 3.5 cm. There is no evidence of free air. There is no ascites. There is no mesenteric edema. Bladder distends smoothly. Uterus is anteverted. There is mild free fluid in the cul-de-sac. The lumbar vertebra have normal alignment. Disc spaces are normal. Posterior elements are intact. Bon y pelvis is intact. IMPRESSION: Dilated small bowel consistent with mechanical small bowel obstruction is a change compared to old ex am. Transition point could be the ileostomy. There is mild free fluid in the pelvis. Dilated gallbladder suggestive of gallbladder dysfunction and cholecystitis is a change compared to o ld exam. Pelvic free fluid increased compared to old exam. There is clearing of the periumbilical her miguel a compared to old exam. Appendix not definitely seen. No sign of appendicitis.
--- NOTE | 2019-10-26 23:55 | US ---
EXAMINATION TYPE: US abdomen limited DATE OF EXAM: 10/26/2019 COMPARISON: CT CLINICAL HISTORY: bilirubin elevated. Bilirubin elevated. Hx appendectomy, ileostomy. EXAM MEASUREMENTS: Liver Length: 16.6 cm Gallbladder Wall: 0.27 cm CBD: 0.38 cm Right Kidney: 11.2 x 5.2 x 4.6 cm Pancreas: Limited due to gas. Liver: Appears coarse. Limited due to gas. Gallbladder: Measures 5.1 cm in width. There area hyperechoic areas with posterior shadowing within the gallbladder. Evidence for sonographic Simpson's sign: No CBD: Appears wnl Right Kidney: No hydronephrosis or masses seen *There appears to be an anechoic area between the liver and right kidney in Morison's pouch measuring : 2.9 x 3.0 x 0.9 cm. IMPRESSION: Dilated gallbladder with gallstones. Gallbladder measures more than 5 cm in diameter. Thi s is suggestive of cholecystitis. No dilated ducts. No focal liver defect.
[2019-10-27] MEDS ORDERED: HYDROmorphone 0.5 MG/0.5 ML SYRINGE IVP STA (00:28)
[2019-10-27] MEDS ORDERED: AMPICILLIN-SULBACTAM 3 GM in SODIUM CHLORIDE 0.9% 100 ML IVPB STA (01:03)
[2019-10-27] MEDS ORDERED: ONDANSETRON 4 MG/2 ML VIAL IVP STA (01:12)
[2019-10-27 01:30] VITALS: BP 135/92; PULSE 84; TEMP 97.5
== END 2019-10-27 01:54 | disposition other institution (70) ==
LOC: EC 20:37
DX: K56.609 Unspecified intestinal obstruction, unspecified as to partial versus complete obstruction (principal); D72.829 Elevated white blood cell count, unspecified; Z79.899 Other long term (current) drug therapy; Z88.1 Allergy status to other antibiotic agents; Z90.89 Acquired absence of other organs; Z93.2 Ileostomy status
CPT/HCPCS: 36415; 80053; 82150; 83690; 85025; 81001; 81025; 76705; 74177; 99285; 96374; 96375 ×2; 96376 ×2; 96361 ×3; J2405 ×2; J0295; J1170 ×2; Q9967

== ENCOUNTER 2022-02-20 18:33 | Emergency (ER) | payer BC ==
[2022-02-20] MEDS ORDERED: hydroCHLOROthiazide 12.5 MG CAP PO STA (22:33)
[2022-02-20 23:51] LABS: Basophils # (A) 0.1 k/uL (0-0.2); Basophils % (A) 1 %; Eosinophils # (A) 0.2 k/uL (0-0.7); Eosinophils % (A) 1 %; HGB 14.8 gm/dL (11.4-16.0); Lymphocytes # (A) 3.3 k/uL (1.0-4.8); Lymphocytes % (A) 31 %; MCH 28.3 pg (25.0-35.0); MCHC 35.4 g/dL (31.0-37.0); MCV 79.9 fL (80.0-100.0); Monocytes # (A) 0.6 k/uL (0-1.0); Monocytes % (A) 6 %; Neutrophils # (A) 6.2 k/uL (1.3-7.7); Neutrophils % (A) 58 %; Platelet Count 294 k/uL (150-450); RBC 5.25 m/uL (3.80-5.40); RDW 12.4 % (11.5-15.5); WBC 10.6 k/uL (3.8-10.6)
--- NOTE | 2022-02-21 | ED ---
General Adult HPI - General Chief complaint: Recheck/Abnormal Lab/Rx Stated complaint: Hypertensive Time Seen by Provider: 02/20/22 21:51 Source: patient Mode of arrival: ambulatory Limitations: no limitations - History of Present Illness Initial comments: This patient is a 31-year-old woman with history of Crohn's disease who presents because she found her blood pressure to be elevated today. The patient states that she does not regularly check her blood pressure. An infusion nurse that checked her pressure last time she had been given infusion and told her that it was elevated. The patient states that today she had access to a monitor and bret ck her blood pressure and found it to be high and therefore presented here to be evaluated. She is not having any symptoms that she relates blood pressure. No headache, neurologic symptoms, chest pain, dyspnea, diaphoresis or other symptoms. She states that she does not see a physician regularly -: hour(s) Severity scale (1-10): 0 Consistency: constant Improves with: none Worsens with: none Associated Symptoms: denies other symptoms Treatments Prior to Arrival: none - Related Data Home Medications Medication Instructions Recorded Confirmed Cholecalciferol (Vitamin D3) 2,000 unit PO DAILY 01/09/19 02/13/19 [Vitamin D3] Ferrous Sulfate [Iron (65 MG 325 mg PO MOWEFR 01/09/19 02/13/19 Elemental)] Multivitamins, Thera [Multivitamin 1 tab PO DAILY 01/09/19 02/13/19 (formulary)] Ertapenem [INVanz] 1 gm IVPB Q24H 02/13/19 02/13/19 Previous Rx's Medication Instructions Recorded Loperamide [Imodium] 2 mg PO QID PRN #20 capsule 03/01/19 hydroCHLOROthiazide [Hydrodiuril] 12.5 mg PO DAILY #30 cap 02/20/22 Allergies Allergy/AdvReac Type Severity Reaction Status Date / Time cephalexin [From Keflex] Allergy Rash/Hives Verified 10/26/19 20:46 Review of Systems ROS Statement: Those systems with pertinent positive or pertinent negative responses have been documented in the HPI. ROS Other: All systems not noted in ROS Statement are negative. Constitutional: Denies: fever Eyes: Denies: vision change Respiratory: Denies: cough, dyspnea Cardiovascular: Denies: chest pain, palpitations, orthopnea, edema Gastrointestinal: Denies: abdominal pain, vomiting, diarrhea Genitourinary: Denies: dysuria Musculoskeletal: Denies: back pain Skin: Denies: rash Neurological: Denies: headache, weakness, paresthesias Past Medical History Past Medical History: No Reported History Additional Past Medical History / Comment(s): crohns, abscess to intestine History of Any Multi-Drug Resistant Organisms: C-DIFF Date of last positivie culture/infection: 2018 MDRO Source:: stool Past Surgical History: Appendectomy Additional Past Surgical History / Comment(s): ileostomy and reversal Past Psychological History: No Psychological Hx Reported Smoking Status: Never smoker Past Alcohol Use History: Rare Past Drug Use History: None Reported General Exam Limitations: no limitations General appearance: alert, in no apparent distress Head exam: Present: atraumatic, normocephalic Eye exam: Present: normal appearance Respiratory exam: Present: normal lung sounds bilaterally. Absent: respiratory distress, wheezes, rales, rhonchi, stridor Cardiovascular Exam: Present: regular rate, normal rhythm, normal heart sounds. Absent: systolic murmur, diastolic murmur, rubs, gallop GI/Abdominal exam: Present: soft. Absent: distended, tenderness, guarding, rebound, rigid, mass Extremities exam: Present: normal inspection, normal capillary refill. Absent: pedal edema, calf tenderness Back exam: Present: normal inspection. Absent: CVA tenderness (R), CVA tenderness (L) Neurological exam: Present: alert Skin exam: Present: warm, dry, intact, normal color. Absent: rash Course Vital Signs 02/20/22 02/20/22 02/21/22 19:02 23:38 00:03 Temperature 98.4 F Pulse Rate 95 87 86 Respiratory 16 18 Rate Blood Pressure 209/130 207/116 193/111 O2 Sat by Pulse 98 98 Oximetry 02/21/22 00:36 Temperature 98.0 F Pulse Rate 86 Respiratory 16 Rate Blood Pressure 193/108 O2 Sat by Pulse 99 Oximetry Medical Decision Making - Medical Decision Making Patient is 31-year-old woman with asymptomatic hypertension. Given the level of her blood pressure, she is started on oral antihypertensive which did bring the pressure down somewhat. She remains asymptomatic. Discussed appropriate further care and follow-up as well as return parameters. - Lab Data Result diagrams: 02/20/22 23:38 02/20/22 23:38 Lab Results 02/20/22 02/20/22 Range/Units 23:38 23:38 WBC 10.6 (3.8-10.6) k/uL RBC 5.25 (3.80-5.40) m/uL Hgb 14.8 (11.4-16.0) gm/dL Hct 42.0 (34.0-46.0) % MCV 79.9 L (80.0-100.0) fL MCH 28.3 (25.0-35.0) pg MCHC 35.4 (31.0-37.0) g/dL RDW 12.4 (11.5-15.5) % Plt Count 294 (150-450) k/uL MPV 8.0 Neutrophils % 58 % Lymphocytes % 31 % Monocytes % 6 % Eosinophils % 1 % Basophils % 1 % Neutrophils # 6.2 (1.3-7.7) k/uL Lymphocytes # 3.3 (1.0-4.8) k/uL Monocytes # 0.6 (0-1.0) k/uL Eosinophils # 0.2 (0-0.7) k/uL Basophils # 0.1 (0-0.2) k/uL Sodium 137 (137-145) mmol/L Potassium 3.7 (3.5-5.1) mmol/L Chloride 104 (98-107) mmol/L Carbon Dioxide 23 (22-30) mmol/L Anion Gap 10 mmol/L BUN 10 (7-17) mg/dL Creatinine 0.58 (0.52-1.04) mg/dL Est GFR (CKD-EPI)AfAm >90 (>60 ml/min/1.73 sqM) Est GFR (CKD-EPI)NonAf >90 (>60 ml/min/1.73 sqM) Glucose 103 H (74-99) mg/dL Calcium 9.2 (8.4-10.2) mg/dL Total Bilirubin 1.0 (0.2-1.3) mg/dL AST 75 H (14-36) U/L ALT 110 H (4-34) U/L Alkaline Phosphatase 102 (38-126) U/L Total Protein 7.7 (6.3-8.2) g/dL Albumin 4.6 (3.5-5.0) g/dL Disposition Clinical Impression: Hypertension Disposition: HOME SELF-CARE Condition: Good Instructions (If sedation given, give patient instructions): Hypertension (ED) Prescriptions: hydroCHLOROthiazide [Hydrodiuril] 12.5 mg PO DAILY #30 cap Is patient prescribed a controlled substance at d/c from ED?: No Referrals: None,Stated [Primary Care Provider] - 1-2 days
[2022-02-21 00:02] LABS: ALT 110 U/L (4-34); AST 75 U/L (14-36); African American GFR (CKD) >90 (>60 ml/min/1.73 sqM); Albumin 4.6 g/dL (3.5-5.0); Alkaline Phosphatase 102 U/L (38-126); Anion Gap 10 mmol/L; Blood Urea Nitrogen 10 mg/dL (7-17); Calcium 9.2 mg/dL (8.4-10.2); Carbon Dioxide 23 mmol/L (22-30); Chloride 104 mmol/L (98-107); Glucose 103 mg/dL (74-99); Non-African American GFR(CKD) >90 (>60 ml/min/1.73 sqM); Potassium 3.7 mmol/L (3.5-5.1); Sodium 137 mmol/L (137-145); Total Protein 7.7 g/dL (6.3-8.2)
[2022-02-21 00:04] VITALS: PULSE 86
[2022-02-21 00:48] VITALS: BP 193/108; RESP 16; TEMP 98
== END 2022-02-21 00:36 | disposition home or self-care (01) ==
LOC: EC 18:33
DX: I10 Essential (primary) hypertension (principal); Z88.1 Allergy status to other antibiotic agents
CPT/HCPCS: 36415; 80053; 85025; 99283